=== PATIENT | female | born 1975 | race Caucasian/White ===

== ENCOUNTER 2023-03-18 07:58 | Day surgery (SDC) | payer MEDICAID ==
[~2023-03-18] VITALS: Ht 170.2 cm; Wt 164.2 kg
[2023-03-18] MEDS ORDERED: PAROXETINE10 MG PO (08:29)
[2023-03-18] MEDS ORDERED: [UNRECOGNIZED DRUG - OTHER] PO (08:29)
[2023-03-18] MEDS ORDERED: MELOXICAM15 MG PO (08:30)
[2023-03-18] MEDS ORDERED: NIFEDIPINE ER30 M1 PO (08:33)
[2023-03-18] MEDS ORDERED: ARTHRITIS PAIN650 MG PO (08:33)
[2023-03-18] MEDS ORDERED: HYDROCHLOROT25 MG PO (08:34)
[2023-03-18] MEDS ORDERED: LISINOPRIL40 MG PO (08:35)
[2023-03-18] MEDS ORDERED: ARTHRITIS PAIN RE1 % PO (08:36)
[2023-03-18 11:08] VITALS: BP 117/83
== END 2023-03-18 10:26 | disposition home or self-care (01) ==
LOC: ORM 07:58
PROVIDERS: ATTEND Physical Medicine & Rehabilitation Pain Medicine
DX: M25.561 Pain in right knee (principal)

== ENCOUNTER 2023-06-24 07:57 | Day surgery (SDC) | payer MEDICAID ==
[~2023-06-24] VITALS: Ht 175.3 cm; Wt 155.6 kg
[~2023-06-24 07:57] MED LIST: ARTHRITIS PAIN RE1 % PO; ARTHRITIS PAIN650 MG PO; HYDROCHLOROT25 MG PO; LISINOPRIL40 MG PO; MELOXICAM15 MG PO; NIFEDIPINE ER30 M1 PO; PAROXETINE10 MG PO; [UNRECOGNIZED DRUG - OTHER] PO
[2023-06-24 09:28] LABS: HCG SERUM/URINE (NEG/POS) NEGATIVE (NEGATIVE)
[2023-06-24] MEDS ORDERED: CELEBREX100 M1 PO (09:34)
[2023-06-24] MEDS ORDERED: PROCARDIA XL30 MG PO (09:34)
[2023-06-24 11:26] VITALS: BP 121/77
== END 2023-06-24 10:45 | disposition home or self-care (01) ==
LOC: ENDO 07:57
PROVIDERS: ATTEND Physical Medicine & Rehabilitation Pain Medicine
DX: M25.562 Pain in left knee (principal); M25.561 Pain in right knee; G89.4 Chronic pain syndrome
CPT/HCPCS: Q9967